=== PATIENT | male | born 1955 | race Caucasian/White ===

== ENCOUNTER 2022-04-25 14:39 | Inpatient (IN) ==
[2022-04-25 16:52] LABS: Urine Appearance Clear; Urine Bilirubin Negative (Negative); Urine Blood 1+ (Negative); Urine Color Yellow; Urine Glucose Negative (Negative); Urine Ketones 1+ (Negative); Urine Nitrite Negative (Negative); Urine Protein 1+(30 mg/dL) (Negative); Urine Specific Gravity 1.027 (1.002-1.030); Urine Urobilinogen Negative (Negative)
[2022-04-25 16:54] LABS: ABS Basophils 0.2 10^3/ul (0-0.2); ABS Eosinophils 0.1 10^3/ul (0-0.6); ABS Lymphocytes 0.5 10^3/ul (1.0-4.8); ABS Monocytes 0.5 10^3/ul (0-0.8); ABS Neutrophils 4.9 10^3/ul (1.5-7.7); Eosinophil % 1.9 %; Hematocrit 42 % (42-52); Lymphocyte % 8.2 %; Mean Corpuscular HGB Conc 33 g/dL (31-36); Mean Corpuscular Hemoglobin 30 pg (27-31); Mean Corpuscular Volume 89 fL (80-94); Mean Platelet Volume 7.9 fL (7.4-10.4); Platelet Count 221 10^3/uL (150-450); Red Blood Count 4.71 10^6 /uL (4.18-5.48); Red Cell Distribution Width 14 % (10-15); White Blood Count 6.2 10^3/uL (3.5-10.8)
[2022-04-25 16:58] LABS: Urine Bacteria Absent (Absent); Urine Red Blood Cell 1+(3-5/hpf) (Absent); Urine White Blood Cell Trace(0-5/hpf) (Absent)
[2022-04-25 17:04] LABS: Urine Benzodiazepine Screen Presumptive Positive (None Detect); Urine Cannabinoids Screen None Detected (None Detect); Urine Opiates Screen Presumptive Positive (None Detect)
[2022-04-25 17:26] LABS: ALT 11 U/L (7-52); AST 14 U/L (13-39); Acetaminophen < 15 mcg/mL; Albumin 4.4 g/dL (3.2-5.2); Albumin/Globulin Ratio 1.8 (1-3); Alcohol, S < 13 mg/dL (<13); Alkaline Phosphatase 81 U/L (35-149); Anion Gap 11 mmol/L (2-11); Blood Urea Nitrogen 28 mg/dL (6-24); CO2 Carbon Dioxide 25 mmol/L (22-32); Calcium 9.3 mg/dL (8.6-10.3); Chloride 100 mmol/L (101-111); Globulin 2.5 g/dL (2-4); Glucose 119 mg/dL (70-100); Potassium 3.9 mmol/L (3.5-5.0); Salicylate < 2.50 mg/dL (<30); Sodium 136 mmol/L (135-145); Total Protein 6.9 g/dL (6.4-8.9); eGFR CKD-EPI 71.1 (>60)
[2022-04-25 17:40] LABS: TSH Ultra Thyroid Stim Horm 3.29 mcIU/mL (0.34-5.60)
[2022-04-25] MEDS ORDERED: Al Hydrox/Mg Hydrox/Simet LIQ 30 ML UDC PO PRN (21:33)
[2022-04-26 07:52] LABS: HDL Cholesterol 56.1 mg/dL
[2022-04-26] MEDS: Vitamin THERAPEUTIC TAB PO SCH (09:02)
[2022-04-26] MEDS ORDERED: Albuterol HFA INHALER 8 gm MDI INH PRN (09:21)
[2022-04-26] MEDS: Mometasone/Formoter 100/5 MDI INH SCH ×2 (10:11→20:03)
[2022-04-26] MEDS ORDERED: Thiamine 100 MG/ML 2 ml VIAL (200 mg) IM ONE (12:25)
[2022-04-26] MEDS ORDERED: Multivitamins/Minerals TAB PO SCH (13:00)
[2022-04-26] MEDS: guaiFENesin DM SUGAR FREE 100 MG/10 MG 5 ML UDC PO PRN (20:05)
[2022-04-27] MEDS: Mometasone/Formoter 100/5 MDI INH SCH ×2 (08:11→18:06)
[2022-04-27] MEDS: Vitamin THERAPEUTIC TAB PO SCH (08:11)
[2022-04-27] MEDS ORDERED: Nicotine PATCH 21 MG/24 HR PATCH ONE (15:35)
[2022-04-27] MEDS: guaiFENesin DM SUGAR FREE 100 MG/10 MG 5 ML UDC PO PRN (18:06)
[2022-04-28] MEDS: Vitamin THERAPEUTIC TAB PO SCH (08:31)
[2022-04-28] MEDS: Mometasone/Formoter 100/5 MDI INH SCH ×2 (11:11→18:38)
[2022-04-28] MEDS: Nicotine PATCH 21 MG/24 HR PATCH TRANSDERM SCH ×2 (11:12→11:50)
[2022-04-28] MEDS: oxyCODONE/Acetamin 5/325 mg TAB PO PRN ×2 (14:48→22:48)
[2022-04-28] MEDS: guaiFENesin DM SUGAR FREE 100 MG/10 MG 5 ML UDC PO PRN (18:38)
[2022-04-29] MEDS: Vitamin THERAPEUTIC TAB PO SCH (07:58)
[2022-04-29] MEDS: Nicotine PATCH 21 MG/24 HR PATCH TRANSDERM SCH (08:00)
[2022-04-29] MEDS: oxyCODONE/Acetamin 5/325 mg TAB PO PRN ×2 (08:02→19:41)
[2022-04-29] MEDS: Mometasone/Formoter 100/5 MDI INH SCH ×2 (08:04→19:38)
[2022-04-30] MEDS: Mometasone/Formoter 100/5 MDI INH SCH ×2 (07:11→19:34)
[2022-04-30] MEDS: Vitamin THERAPEUTIC TAB PO SCH (08:56)
[2022-04-30] MEDS: Nicotine PATCH 21 MG/24 HR PATCH TRANSDERM SCH (08:57)
[2022-05-01] MEDS: Vitamin THERAPEUTIC TAB PO SCH (08:38)
[2022-05-01] MEDS: Nicotine PATCH 21 MG/24 HR PATCH TRANSDERM SCH (08:38)
[2022-05-01] MEDS: Mometasone/Formoter 100/5 MDI INH SCH ×2 (08:41→20:13)
[2022-05-02] MEDS: Mometasone/Formoter 100/5 MDI INH SCH (07:38)
[2022-05-02] MEDS: Nicotine PATCH 21 MG/24 HR PATCH TRANSDERM SCH (07:40)
[2022-05-02] MEDS: Vitamin THERAPEUTIC TAB PO SCH (07:41)
[2022-05-02 09:39] VITALS: BP 148/106
== END 2022-05-02 14:05 | disposition home or self-care (01) | DRG 885 ==
LOC: ED 14:39 → BSU 22:31
PROVIDERS: ADMIT Psychiatry & Neurology Psychiatry; ATTEND Psychiatry & Neurology Psychiatry